=== PATIENT | male | born 1945 | race Caucasian/White ===

== ENCOUNTER → 2017-11-12 | Outpatient (CLI) | payer MEDICARE, BC ==
[~2017-11-12] MED LIST: AMLO10 PO; AMLO5; AMOCLA875 PO; ASPI81CH PO; BETA.05TC TP; CEFD300; CETI5 PO; CODACE30; CYCL10 PO; FLUC200; HYDACE10B PO; LACT10SY PO; MOM; OXYACE5T PO; OXYC5; PRED20 PO; PROM25; PROM25 PO; SULTRIDS; TAMS.4ER PO; TRIHYD253B
== END ==
LOC: LAB SHORT 14:22 → PLD 14:22
DX: D48.5 Neoplasm of uncertain behavior of skin (principal)
CPT/HCPCS: 88305; 88312

== ENCOUNTER → 2017-11-21 | Outpatient (CLI) | payer MEDICARE, BC | END | disposition home or self-care (01) | LOC: LAB SHORT 12:16 → LAB EV 12:16 | DX: L73.9 Follicular disorder, unspecified (principal) | CPT/HCPCS: 87070; 87205 ==

== ENCOUNTER 2021-05-22 06:02 | Emergency (ER) | payer MEDICARE, BC ==
[~2021-05-22] VITALS: Ht 188 cm; Wt 104.3 kg
[2021-05-22 06:29] LABS: BASOPHILS ABSOLUTE AUTO 0.07 K/mm3 (0.00-0.23); BASOPHILS PERCENT AUTO 1 % (0-2); EOSINOPHILS ABSOLUTE AUTO 0.52 K/mm3 (0.00-0.68); EOSINOPHILS PERCENT AUTO 7 % (0-6); Hematocrit 50.8 % (37.0-53.0); Hemoglobin 17.2 g/dL (13.5-17.5); IMMATURE GRAN ABSOLUTE AUTO 0.05 K/mm3 (0.00-0.10); IMMATURE GRAN PERCENT AUTO 1 % (0-1); LYMPHOCYTES ABSOLUTE AUTO 1.81 K/mm3 (0.84-5.20); LYMPHOCYTES PERCENT AUTO 25 % (21-46); MONOCYTES ABSOLUTE AUTO 0.61 K/mm3 (0.16-1.47); MONOCYTES PERCENT AUTO 9 % (4-13); Mean Corpuscular HGB 28.2 pg (26.0-34.0); Mean Corpuscular HGB Conc 33.9 g/dL (31.5-36.5); Mean Corpuscular Volume 83 fL (80-100); Mean Platelet Volume 9.2 fL (9.1-12.4); NEUTROPHILS ABSOLUTE AUTO 4.09 K/mm3 (1.96-9.15); NEUTROPHILS PERCENT AUTO 57 % (41-73); Platelet Count 173 K/mm3 (150-400); RDW Standard Deviation 39.8 fL (35.1-46.3); Red Blood Cell Count 6.09 M/mm3 (4.30-5.90); White Blood Cell Count 7.15 K/mm3 (4.00-11.30)
[2021-05-22 06:46] LABS: Alanine Aminotransfer (ALT/SGP 24 U/L (12-78); Albumin, Blood 3.7 g/dL (3.4-5.0); Albumin/Globulin Ratio 0.9 (0.8-1.8); Alk Phos 76 U/L (50-136); Anion Gap 6 mmol/L (6-16); Aspartate Aminotrans (AST/SGOT 21 U/L (12-37); Bilirubin, Total 0.6 mg/dL (0.1-1.0); Blood Urea Nitrogen 11 mg/dL (8-24); Bun/Creatinine Ratio 12.4 (12.0-20.0); CO2, Blood 26 mmol/L (21-32); Calcium, Blood 9.6 mg/dL (8.5-10.1); Chloride, Blood 107 mmol/L (98-108); Creatinine, Blood 0.89 mg/dL (0.60-1.20); Globulin, Blood 4.1 g/dL (2.2-4.0); Glomerular Filtration Rate >60 (60-); Glucose, Blood 136 mg/dL (70-99); Potassium, Blood 4.1 mmol/L (3.5-5.5); Sodium, Blood 139 mmol/L (136-145); Total Protein, Blood 7.8 g/dL (6.4-8.2); Troponin I <0.015 ng/mL (0.000-0.040)
[2021-05-22] MEDS ORDERED: AMOCLA875 PO (08:41)
== END 2021-05-22 09:09 | disposition home or self-care (01) ==
LOC: ER 06:02
PROVIDERS: Emergency Medicine
DX: K57.32 Diverticulitis of large intestine without perforation or abscess without bleeding (principal); R06.00 Dyspnea, unspecified; Z88.8 Allergy status to other drugs, medicaments and biological substances; Z88.1 Allergy status to other antibiotic agents; Z79.899 Other long term (current) drug therapy; Z79.82 Long term (current) use of aspirin; I10 Essential (primary) hypertension
CPT/HCPCS: 36415; 74177; 80053; 83880; 84484; 85025; 93005; 93010; 99285-25; Q9967

== ENCOUNTER 2021-07-18 06:35 | Day surgery (SDC) | payer MEDICARE, BC ==
[~2021-07-18] VITALS: Ht 188 cm; Wt 101.3 kg
== END 2021-07-18 09:14 | disposition home or self-care (01) ==
LOC: ORSCSDS 06:35
PROVIDERS: Surgery
PROC: 0DJD8ZZ Inspection of Lower Intestinal Tract, Via Natural or Artificial Opening Endoscopic (ICD-10-PCS; principal; 2021-07-18 08:00)
DX: R19.4 Change in bowel habit (principal); K57.30 Diverticulosis of large intestine without perforation or abscess without bleeding; K21.9 Gastro-esophageal reflux disease without esophagitis; E78.5 Hyperlipidemia, unspecified; I10 Essential (primary) hypertension; E78.1 Pure hyperglyceridemia; Z87.891 Personal history of nicotine dependence; Z79.82 Long term (current) use of aspirin; Z79.899 Other long term (current) drug therapy
CPT/HCPCS: J2704; J7120

== ENCOUNTER → 2021-10-04 | Outpatient (CLI) | payer MEDICARE, BC | END | disposition home or self-care (01) | LOC: LAB 11:05 → LAB SHORT 11:05 | DX: D22.39 Melanocytic nevi of other parts of face (principal); D23.39 Other benign neoplasm of skin of other parts of face | CPT/HCPCS: 88305 ==

== ENCOUNTER → 2022-08-02 | Outpatient (CLI) | payer MEDICARE, BC ==
[~2022-08-02] MED LIST changes: +ONDA4ODT MM
== END | disposition home or self-care (01) ==
LOC: PLD 14:50 → LAB SHORT 14:50
DX: L01.02 Bockhart's impetigo (principal)
CPT/HCPCS: 88305

== ENCOUNTER 2022-09-24 09:43 | Emergency (ER) | payer MEDICARE, BC ==
[~2022-09-24] VITALS: Ht 182.9 cm; Wt 90.7 kg
[2022-09-24 10:12] VITALS: BP 180/90
[2022-09-24] MEDS ORDERED: TYLECOD3 PO (10:16)
== END 2022-09-24 10:30 | disposition home or self-care (01) ==
LOC: ER 09:43
DX: M75.102 Unspecified rotator cuff tear or rupture of left shoulder, not specified as traumatic (principal); I10 Essential (primary) hypertension; Z87.442 Personal history of urinary calculi; Z88.1 Allergy status to other antibiotic agents; Z88.8 Allergy status to other drugs, medicaments and biological substances; Z88.2 Allergy status to sulfonamides; Z79.82 Long term (current) use of aspirin
CPT/HCPCS: 99282

== ENCOUNTER 2023-02-23 01:07 | Emergency (ER) | payer MEDICARE, BC ==
[~2023-02-23] VITALS: Ht 188 cm; Wt 100.7 kg
[~2023-02-23 01:07] MED LIST changes: +TYLECOD3 PO
[2023-02-23 02:41] LABS: BASOPHILS ABSOLUTE AUTO 0.07 K/mm3 (0.00-0.23); BASOPHILS PERCENT AUTO 1 % (0-2); EOSINOPHILS ABSOLUTE AUTO 0.45 K/mm3 (0.00-0.68); EOSINOPHILS PERCENT AUTO 5 % (0-6); Hemoglobin 16.8 g/dL (13.5-17.5); IMMATURE GRAN ABSOLUTE AUTO 0.05 K/mm3 (0.00-0.10); IMMATURE GRAN PERCENT AUTO 1 % (0-1); LYMPHOCYTES ABSOLUTE AUTO 1.84 K/mm3 (0.84-5.20); LYMPHOCYTES PERCENT AUTO 22 % (21-46); MONOCYTES ABSOLUTE AUTO 0.75 K/mm3 (0.16-1.47); MONOCYTES PERCENT AUTO 9 % (4-13); Mean Corpuscular HGB 28.3 pg (26.0-34.0); Mean Corpuscular HGB Conc 33.6 g/dL (31.5-36.5); Mean Corpuscular Volume 84 fL (80-100); Mean Platelet Volume 9.5 fL (9.1-12.4); NEUTROPHILS ABSOLUTE AUTO 5.11 K/mm3 (1.96-9.15); NEUTROPHILS PERCENT AUTO 62 % (41-73); Platelet Count 168 K/mm3 (150-400); RDW Coefficient Variation 13.8 % (11.7-14.2); RDW Standard Deviation 42.3 fL (35.1-46.3); Red Blood Cell Count 5.94 M/mm3 (4.30-5.90); White Blood Cell Count 8.27 K/mm3 (4.00-11.30)
[2023-02-23 03:17] LABS: Albumin, Blood 3.8 g/dL (3.4-5.0); Bilirubin, Total 0.5 mg/dL (0.1-1.0); Bun/Creatinine Ratio 16.9 (12.0-20.0); Calcium, Blood 8.6 mg/dL (8.5-10.1); Creatinine, Blood 0.94 mg/dL (0.60-1.20); Globulin, Blood 3.8 g/dL (2.2-4.0); Potassium, Blood 4.1 mmol/L (3.5-5.5); Total Protein, Blood 7.6 g/dL (6.4-8.2)
[2023-02-23] MEDS ORDERED: XARELTO20 M1 PO (03:41)
[2023-02-23] MEDS ORDERED: MAGCIT300 PO (03:44)
[2023-02-23] MEDS ORDERED: ZINC15 PO (03:44)
[2023-02-23 05:45] VITALS: BP 148/101
[2023-02-23] MEDS ORDERED: NITR.4SL SL (05:45)
== END 2023-02-23 06:04 | disposition home or self-care (01) ==
LOC: ER 01:07
PROVIDERS: Student in an Organized Health Care Education/Training Program
DX: R07.89 Other chest pain (principal); Z87.891 Personal history of nicotine dependence; I10 Essential (primary) hypertension; Z88.8 Allergy status to other drugs, medicaments and biological substances; Z88.1 Allergy status to other antibiotic agents; Z88.2 Allergy status to sulfonamides; Z79.899 Other long term (current) drug therapy; Z79.82 Long term (current) use of aspirin
CPT/HCPCS: 71045; 80053; 83880; 84484; 85025; 93005; 93010; 99285-25

== ENCOUNTER 2023-03-04 04:33 | Emergency (ER) | payer MEDICARE, BC ==
[~2023-03-04] VITALS: Ht 188 cm; Wt 100.7 kg
[~2023-03-04 04:33] MED LIST changes: +MAGCIT300 PO; +NITR.4SL SL; +XARELTO20 M1 PO; +ZINC15 PO
[2023-03-04 05:42] LABS: BASOPHILS ABSOLUTE AUTO 0.09 K/mm3 (0.00-0.23); BASOPHILS PERCENT AUTO 1 % (0-2); EOSINOPHILS PERCENT AUTO 6 % (0-6); Hematocrit 50.6 % (37.0-53.0); Hemoglobin 17.2 g/dL (13.5-17.5); IMMATURE GRAN PERCENT AUTO 1 % (0-1); LYMPHOCYTES ABSOLUTE AUTO 1.95 K/mm3 (0.84-5.20); LYMPHOCYTES PERCENT AUTO 24 % (21-46); MONOCYTES PERCENT AUTO 9 % (4-13); Mean Corpuscular HGB 28.7 pg (26.0-34.0); Mean Corpuscular Volume 85 fL (80-100); Mean Platelet Volume 9.6 fL (9.1-12.4); NEUTROPHILS ABSOLUTE AUTO 4.85 K/mm3 (1.96-9.15); NEUTROPHILS PERCENT AUTO 59 % (41-73); Platelet Count 172 K/mm3 (150-400); RDW Standard Deviation 42.8 fL (35.1-46.3); Red Blood Cell Count 5.99 M/mm3 (4.30-5.90); White Blood Cell Count 8.19 K/mm3 (4.00-11.30)
[2023-03-04 05:58] LABS: Albumin, Blood 3.9 g/dL (3.4-5.0); Bilirubin, Total 0.5 mg/dL (0.1-1.0); Bun/Creatinine Ratio 15.7 (12.0-20.0); Calcium, Blood 9.3 mg/dL (8.5-10.1); Creatinine, Blood 1.02 mg/dL (0.60-1.20); Globulin, Blood 3.8 g/dL (2.2-4.0); Potassium, Blood 4.2 mmol/L (3.5-5.5); Total Protein, Blood 7.7 g/dL (6.4-8.2)
[2023-03-04 09:14] VITALS: BP 140/102
== END 2023-03-04 09:15 | disposition home or self-care (01) ==
LOC: ER 04:33
PROVIDERS: Student in an Organized Health Care Education/Training Program
DX: R07.9 Chest pain, unspecified (principal); I10 Essential (primary) hypertension; I48.91 Unspecified atrial fibrillation; Z88.8 Allergy status to other drugs, medicaments and biological substances; Z88.2 Allergy status to sulfonamides; Z88.1 Allergy status to other antibiotic agents; Z79.82 Long term (current) use of aspirin; Z79.899 Other long term (current) drug therapy; Z79.01 Long term (current) use of anticoagulants
CPT/HCPCS: 71046; 80053; 83690; 84484; 85025; 93005; 93010; 99285-25

== ENCOUNTER 2023-09-04 02:03 | Observation (INO) | payer MEDICARE, BC ==
[~2023-09-04] VITALS: Ht 188 cm; Wt 98.2 kg
[2023-09-04 02:41] LABS: BASOPHILS ABSOLUTE AUTO 0.07 K/mm3 (0.00-0.23); BASOPHILS PERCENT AUTO 1 % (0-2); EOSINOPHILS ABSOLUTE AUTO 0.52 K/mm3 (0.00-0.68); EOSINOPHILS PERCENT AUTO 6 % (0-6); Hematocrit 53.7 % (37.0-53.0); Hemoglobin 18.1 g/dL (13.5-17.5); IMMATURE GRAN ABSOLUTE AUTO 0.05 K/mm3 (0.00-0.10); IMMATURE GRAN PERCENT AUTO 1 % (0-1); LYMPHOCYTES ABSOLUTE AUTO 2.79 K/mm3 (0.84-5.20); LYMPHOCYTES PERCENT AUTO 33 % (21-46); MONOCYTES ABSOLUTE AUTO 0.73 K/mm3 (0.16-1.47); MONOCYTES PERCENT AUTO 9 % (4-13); Mean Corpuscular HGB 28.1 pg (26.0-34.0); Mean Corpuscular HGB Conc 33.7 g/dL (31.5-36.5); Mean Corpuscular Volume 83 fL (80-100); Mean Platelet Volume 9.3 fL (9.1-12.4); NEUTROPHILS ABSOLUTE AUTO 4.42 K/mm3 (1.96-9.15); NEUTROPHILS PERCENT AUTO 52 % (41-73); Platelet Count 189 K/mm3 (150-400); RDW Coefficient Variation 14.2 % (11.7-14.2); RDW Standard Deviation 42.2 fL (35.1-46.3); Red Blood Cell Count 6.44 M/mm3 (4.30-5.90); White Blood Cell Count 8.58 K/mm3 (4.00-11.30)
[2023-09-04 03:02] LABS: Alanine Aminotransfer (ALT/SGP 21 U/L (12-78); Albumin, Blood 3.9 g/dL (3.4-5.0); Albumin/Globulin Ratio 0.9 (0.8-1.8); Alk Phos 78 U/L (50-136); Anion Gap 9 mmol/L (3-11); Aspartate Aminotrans (AST/SGOT 20 U/L (12-37); Bilirubin, Total 0.5 mg/dL (0.1-1.0); Blood Urea Nitrogen 17 mg/dL (8-24); Bun/Creatinine Ratio 16.7 (12.0-20.0); CO2, Blood 28 mmol/L (21-32); Calcium, Blood 9.2 mg/dL (8.5-10.1); Chloride, Blood 108 mmol/L (98-108); Creatinine, Blood 1.02 mg/dL (0.60-1.20); Globulin, Blood 4.5 g/dL (2.2-4.0); Glomerular Filtration Rate 75 (60-); Glucose, Blood 104 mg/dL (70-99); Potassium, Blood 4.2 mmol/L (3.5-5.5); Sodium, Blood 141 mmol/L (136-145); Total Protein, Blood 8.4 g/dL (6.4-8.2)
[2023-09-04] MEDS ORDERED: Mag Hydrox/AL Hydrox/Simeth 30 ML UDC PO ONE (03:25)
[2023-09-04] MEDS ORDERED: NS 1,000 ML IV SCH (04:20)
[2023-09-04] MEDS ORDERED: Nitroglycerin 0.4 MG SUBL SL PRN (04:20)
[2023-09-04] MEDS ORDERED: Aspirin 81 MG Chew PO ONE (05:00)
[2023-09-04] MEDS ORDERED: Heparin Sodium,Porcine/0.5 NS 500 ML IV SCH (05:15)
[2023-09-04 05:24] LABS: International Normalized Ratio 1.34
[2023-09-04 05:31] LABS: CHOL/HDL RATIO 5.3; Cholesterol 202 mg/dL (50-200); HDL Cholesterol 38 mg/dL (>39); Low Density Lipoprotein Chol 116 mg/dL (0-110); Triglycerides 242 mg/dL (30-160); Very Low Density Lipoprot Chol 48 mg/dL (6-32)
[2023-09-04] MEDS ORDERED: MAGNESIUM GLYC100 MG PO (06:31)
[2023-09-04 07:00] VITALS: BP 179/122
[2023-09-04] MEDS ORDERED: Doxazosin Mesylate 2 MG Tab PO SCH (09:00)
[2023-09-04] MEDS ORDERED: Atorvastatin 40 MG Tab PO SCH (09:00)
[2023-09-04] MEDS ORDERED: Aspirin 81 MG Chew PO SCH (09:00)
[2023-09-04] MEDS ORDERED: AmLODIPine Besylate 5 MG Tab PO SCH (09:00)
[2023-09-04] MEDS ORDERED: Misc. Tablet PO SCH (09:00)
[2023-09-04 11:32] VITALS: BP 127/78
--- NOTE | 2023-09-04 13:55 | NUR ---
Upon receiving a referral for spiritual care, I visited the patient. 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 He is very encouraged by conversation centered around his darnell and by the prayer that I supplied. He was very grateful for the spiritual care visit. We will remain available to patient and family.
[2023-09-04 16:22] VITALS: BP 139/81
--- NOTE | 2023-09-04 18:07 | NUR ---
SHIFT SUMMARY ASSUMED CARE AT 0700. A/A/OX4 DURING SHIFT, INDEPENDANT IN ROOM. DENIES CP OR SOB. CARDIOLOGY CONSULT TODAY COMPLETED. PLANNING FOR ANGIO TOMORROW, TO BE NPO AFTER MIDNIGHT. LAST HOME XARELTO DOSE LAST NIGHT 1700 AT HOME. VSS, PLEASANT AND COOPERATIVE WITH CARE, NO ACUTE CHANGES, WILL CONTINUE TO MONITOR AND TREAT UNTIL CHANGE OF SHIFT.
[2023-09-04 19:21] VITALS: BP 121/90
--- NOTE | 2023-09-04 21:31 | NUR ---
PT IS ALERT AND ORIENTED X 4, COOPERATIVE WITH CARE AND ABLE TO MAKE NEEDS KNOWN. PERRSAHARA. HE IS ON RA AND MAINTAINING 02 SATURATION ABOVE 92%, HE EBER SOB. HIS HR IS SB/SR 50S-60S, HE EBER CHEST PAIN/PRESSURE. HE DENIES DIZZINESS. OF NOW, PLAN IS FOR PT TO HAVE ANGIO PERFORMED 09/04. PT WILL BE NPO AT MIDNIGHT FOR PROCEDURE. PT AMBULATES TO RESTROOM INDEPENDENTLY AND TOLERATES WELL. PT CONTINENT OF BLADDER AND BOWELS. HE IS RESTING IN HIS ROOM, CALL LIGHT WITHIN REACH.
[2023-09-05] VITALS (10 sets, daily range): BP systolic 113–133; BP diastolic 67–101
--- NOTE | 2023-09-05 05:39 | NUR ---
SHIFT SUMMARY NO ACUTE CHANGES, SEE PREVIOUS NOTE.
[2023-09-05] MEDS ORDERED: Verapamil HCL 2.5 MG/ML 2ML Injection ONE (10:48)
[2023-09-05] MEDS ORDERED: NS 250 ML IV ONE (10:48)
[2023-09-05] MEDS ORDERED: Heparin Sodium 1000 Units/ML 10ML MDV ONE ×2 (10:48→11:11)
[2023-09-05] MEDS ORDERED: NS 2,000 ML IV ONE (10:49)
[2023-09-05] MEDS ORDERED: FentaNYL Citrate 50 MCG/ML 2 ML Injection ONE (11:10)
[2023-09-05] MEDS ORDERED: Midazolam HCl 1MG / ML 2ML Vial ONE (11:11)
[2023-09-05] MEDS ORDERED: AMLO10 PO (16:54)
[2023-09-05] MEDS ORDERED: ASPI81CH PO (16:55)
[2023-09-05] MEDS ORDERED: ATOR40TA PO (16:55)
[2023-09-05] MEDS ORDERED: DOXA1 PO (16:55)
--- NOTE | 2023-09-05 17:48 | NUR ---
ASSUMED CARE AT 0700. PT A/O X4 AND PLEASANT. PT INDEPENDENT IN THE ROOM. ANGIOGRAM AT 1100. TR BAND RECOVERED PER DR ORDERS. NO SWELLING, NO BLEEDING, NO HEMATOMA,TEGADERM AND ARM BOARD IN PLACE. PT GIVEN POST OP CARE EDUCATION PRIOR TO DISCHARGE HOME AT 1745.
== END 2023-09-05 17:47 | disposition home or self-care (01) ==
LOC: ER 02:03 → PCU 02:04
PROVIDERS: Emergency Medicine; Family Medicine; ADMIT Internal Medicine
DX: I25.119 Atherosclerotic heart disease of native coronary artery with unspecified angina pectoris (principal); I48.91 Unspecified atrial fibrillation; I10 Essential (primary) hypertension; R71.8 Other abnormality of red blood cells; Z87.891 Personal history of nicotine dependence; Z88.2 Allergy status to sulfonamides; Z88.8 Allergy status to other drugs, medicaments and biological substances; Z88.1 Allergy status to other antibiotic agents; Z79.82 Long term (current) use of aspirin; Z79.01 Long term (current) use of anticoagulants; Z79.899 Other long term (current) drug therapy
CPT/HCPCS: 71046; 76937; 80053; 80061; 83036; 83880; 84443; 84484; 85025; 85610; 85730; 93005; 93010; 93458; 96365; 99152; 99153; 99285-25; A9270; C1769; C1887; C1894; G0378; J1644; J2250; J3010; J7030; J7050; Q9967

== ENCOUNTER 2024-12-09 06:25 | Emergency (ER) | payer MEDICARE, BC ==
[~2024-12-09] VITALS: Ht 188 cm; Wt 113.4 kg
[~2024-12-09 06:25] MED LIST changes: +ATOR40TA PO; +DOXA1 PO; +MAGNESIUM GLYC100 MG PO
[2024-12-09] MEDS ORDERED: Ondansetron HCl 2 MG / ML 2ML Vial IV ONE (06:45)
[2024-12-09] MEDS ORDERED: HYDROmorphone HCl/Pf 1MG SYR IV ONE (06:45)
[2024-12-09] MEDS ORDERED: NS 1,000 ML IV SCH (06:45)
[2024-12-09 06:57] LABS: BASOPHILS ABSOLUTE AUTO 0.04 K/mm3 (0.00-0.23); BASOPHILS PERCENT AUTO 1 % (0-2); EOSINOPHILS ABSOLUTE AUTO 0.35 K/mm3 (0.00-0.68); EOSINOPHILS PERCENT AUTO 4 % (0-6); Hematocrit 47.8 % (37.0-53.0); Hemoglobin 15.8 g/dL (13.5-17.5); IMMATURE GRAN ABSOLUTE AUTO 0.05 K/mm3 (0.00-0.10); IMMATURE GRAN PERCENT AUTO 1 % (0-1); LYMPHOCYTES ABSOLUTE AUTO 1.76 K/mm3 (0.84-5.20); LYMPHOCYTES PERCENT AUTO 22 % (21-46); MONOCYTES ABSOLUTE AUTO 0.73 K/mm3 (0.16-1.47); MONOCYTES PERCENT AUTO 9 % (4-13); Mean Corpuscular HGB Conc 33.1 g/dL (31.5-36.5); Mean Corpuscular Volume 82 fL (80-100); NEUTROPHILS ABSOLUTE AUTO 5.05 K/mm3 (1.96-9.15); NEUTROPHILS PERCENT AUTO 63 % (41-73); NRBC ABSOLUTE 0.00 K/mm3 (0.00-0.02); NRBC Auto 0.0 /100 WBC (0.0-0.2); Platelet Count 182 K/mm3 (150-400); RDW Coefficient Variation 14.2 % (11.7-14.2); RDW Standard Deviation 42.5 fL (35.1-46.3)
[2024-12-09 07:13] LABS: Alanine Aminotransfer (ALT/SGP 18.0 U/L (12-78); Albumin, Blood 3.4 g/dL (3.4-5.0); Albumin/Globulin Ratio 0.8 (0.8-1.8); Anion Gap 8.0 mmol/L (3-11); Aspartate Aminotrans (AST/SGOT 15.0 U/L (12-37); Bilirubin, Total 0.7 mg/dL (0.1-1.0); Blood Urea Nitrogen 14.0 mg/dL (8-24); CO2, Blood 25.0 mmol/L (21-32); Calcium, Blood 8.6 mg/dL (8.5-10.1); Chloride, Blood 108.0 mmol/L (98-108); Creatinine, Blood 0.98 mg/dL (0.60-1.20); Globulin, Blood 4.4 g/dL (2.2-4.0); Glucose, Blood 125.0 mg/dL (70-99); Potassium, Blood 4.0 mmol/L (3.5-5.5); Sodium, Blood 137.0 mmol/L (136-145); Total Protein, Blood 7.8 g/dL (6.4-8.2)
[2024-12-09 07:50] VITALS: BP 154/87
[2024-12-09 07:51] LABS: Source, Urine Clean Catch
[2024-12-09 07:54] LABS: Bilirubin, Urine Neg (Neg); Color, Urine Yellow (P-Yellow); Glucose Qualitative, Urine Neg (Neg); Ketones, Urine Neg (Neg); Leukocyte Esterase, Urine Neg (Neg); Protein, Urine Neg (Neg); Specific Gravity, Urine 1.020 (1.003-1.022); Urobilinogen, Urine NORM (Normal)
[2024-12-09 08:03] LABS: White Blood Cells, Urine 0-2 /hpf (0-5)
[2024-12-09] MEDS ORDERED: AMOCLA875 PO (08:20)
[2024-12-09] MEDS ORDERED: BISA5EC PO (08:20)
== END 2024-12-09 08:21 | disposition home or self-care (01) ==
LOC: ER 06:25
PROVIDERS: Emergency Medicine
DX: K57.32 Diverticulitis of large intestine without perforation or abscess without bleeding (principal); K63.89 Other specified diseases of intestine; N20.0 Calculus of kidney; I10 Essential (primary) hypertension; I48.91 Unspecified atrial fibrillation; Z79.01 Long term (current) use of anticoagulants; Z79.899 Other long term (current) drug therapy
CPT/HCPCS: 74177; 80053; 81001; 83690; 85025; 96361; 96374-59; 96375; 99284-25; J1171; J2405; J7030; Q9967